=== PATIENT | female | born 1995 ===

== ENCOUNTER 2017-10-16 08:29 | Emergency (ER) | payer OTHER ==
[2017-10-16 08:29] VITALS: BMI 27.4
[2017-10-16 08:59] VITALS: RESP 16
--- NOTE | 2017-10-16 09:19 | ED PDOC ---
HPI: General Adult Time Seen by Provider: 10/16/17 09:04 Chief Complaint (Nursing): Flu-like Symptoms History Per: Patient History/Exam Limitations: no limitations Onset/Duration Of Symptoms: Other (x 2 weeks) Current Symptoms Are (Timing): Still Present Additional Complaint(s): Kae is a 22 year old female, with a history of asthma, who presents to the ED complaining of sore throat, headache, myalgias and non-productive cough x 2 weeks associated with fever. PMD: Eusebia Past Medical History Reviewed: Historical Data, Nursing Documentation, Vital Signs Vital Signs: Last Vital Signs Temp 97 F L 10/16/17 08:57 Pulse 77 10/16/17 08:57 Resp 16 10/16/17 08:57 BP 106/70 10/16/17 08:57 Pulse Ox 98 10/16/17 10:35 - Medical History PMH: Asthma - Surgical History Surgical History: Tonsillectomy - Family History Family History: States: Unknown Family Hx - Immunization History Hx Tetanus Toxoid Vaccination: No Hx Influenza Vaccination: No Hx Pneumococcal Vaccination: No - Home Medications Home Medications: Ambulatory Orders Medication Instructions Recorded Azithromycin [Zithromax] 250 mg PO DAILY #6 tab 10/16/17 - Allergies Allergies/Adverse Reactions: Allergies Allergy/AdvReac Type Severity Reaction Status Date / Time Penicillins Allergy Verified 12/27/16 20:38 Review of Systems ROS Statement: Except As Marked, All Systems Reviewed And Found Negative Constitutional: Positive for: Fever ENT: Positive for: Throat Pain Respiratory: Positive for: Cough (non-productive) Musculoskeletal: Positive for: Other (Myalgias) Neurological: Positive for: Headache Physical Exam - Reviewed Nursing Documentation Reviewed: Yes Vital Signs Reviewed: Yes - Physical Exam ENT: Positive for: Pharyngeal Erythema. Negative for: Tonsillar Exudate Neck: Positive for: Supple Cardiovascular/Chest: Positive for: Regular Rate, Rhythm Respiratory: Positive for: Normal Breath Sounds (Lungs clear bilaterally) Gastrointestinal/Abdominal: Positive for: Normal Exam (Full ROM) - ECG O2 Sat by Pulse Oximetry: 98 (RA) Pulse Ox Interpretation: Normal Medical Decision Making Medical Decision Making: Time: Plan: - Rapid Strep Group A Antigen (-) for Group A Beta Strep Ag Scribe Attestation: Documented by Peter Ronquillo, acting as a scribe for Abhijeet Richardson MD. Provider Scribe Attestation: All medical record entries made by the Scribe were at my direction and personally dictated by me. I have reviewed the chart and agree that the record accurately reflects my personal performance of the history, physical exam, medical decision making, and the department course for this patient. I have also personally directed, reviewed, and agree with the discharge instructions and disposition. Disposition - Clinical Impression Clinical Impression: Upper respiratory infection - Patient ED Disposition Is Patient to be Admitted: No Counseled Patient/Family Regarding: Studies Performed, Diagnosis, Need For Followup, Rx Given - Disposition Referrals: [facility] [Outside] Disposition: Routine/Home Disposition Time: 10:54 Condition: FAIR Prescriptions: Azithromycin [Zithromax] 250 mg PO DAILY #6 tab Instructions: Bacterial Upper Respiratory Infection, Adult Forms: [employer] (Ukrainian)
[2017-10-16 11:01] VITALS: BP 115/80; PULSE 75; TEMP 98.1; O2SAT 99
== END 2017-10-16 11:07 | disposition home or self-care (01) ==
LOC: H.ER 08:29
DX: J06.9 Acute upper respiratory infection, unspecified (principal); J45.909 Unspecified asthma, uncomplicated; Z88.0 Allergy status to penicillin